=== PATIENT | female | born 1985 | race Caucasian/White ===

== ENCOUNTER 2023-09-09 10:46 | Outpatient (CLI) | payer OTHER, SELFPAY ==
--- NOTE | 2023-09-12 11:29 | WPDHOLTEREM ---
Holter/Event Monitor Holter/Event Monitor Date of procedure: 09/09/23 Holter/Event Procedure: 48 Hr Holter Monitor Indications: Palpitations Conclusion: 1. 48 hour holter monitor on 09/09/23. 2. Underlying rhythm is sinus rhythm. HR range 46-167 bpm; average HR 78 bpm. HR at 167 bpm was at 09:31. 3. There are 9 premature supraventricular complexes. No supraventricular tachycardia. 4. No premature ventricular complexes. No ventricular tachycardia. 5. No sinoatrial or atrioventricular blocks. No significant pauses greater than 2 seconds. 6. No symptoms available for correlation.
== END 2023-09-09 10:47 | disposition home or self-care (01) ==
PROVIDERS: PCP Physician Assistant Medical; Visit Provider Physician Assistant Medical
DX: R00.2 Palpitations (principal)
CPT/HCPCS: 93225; 93226